=== PATIENT | male | born 2005 | race Caucasian/White ===

== ENCOUNTER 2025-04-18 08:46 | Emergency (ER) | payer OTHER, SELFPAY ==
[2025-04-18] VITALS (9 sets, daily range): BP systolic 112–141; BP diastolic 52–75; PULSE 53–67; RESP 11–34; TEMP 37; O2SAT 98–100; BMI 23.8
--- NOTE | 2025-04-18 09:00 | DI.RAD.S_ITS ---
PROCEDURE: XR CHEST 1V INDICATIONS: altered mental status TECHNIQUE: One view of the chest was acquired. COMPARISON: None. FINDINGS: Surgical changes and devices: None. Lungs and pleura: Lungs are clear. No pleural effusions or pneumothorax. Mediastinum: Mediastinal contours appear normal. Heart size is normal. Bones and chest wall: No suspicious bony lesions. Overlying soft tissues appear unremarkable. IMPRESSION: No acute cardiopulmonary abnormality is seen. Dictated by: Tom Sanchez M.D. on 04/18/2025 at 9:43 Approved by: Tom Sanchez M.D. on 04/18/2025 at 9:43
--- NOTE | 2025-04-18 09:12 | EKG_ITS ---
[address] [address] Test Date: 2025-04-18 Pat Name: Guerrero Joseph Department: Room: Gender: Male [employer] Coordinator: GLADYS : 2005 Requested By: Order Number: [id number] Reading MD: Geoff Kelley Measurements Intervals [place] Rate: 70 P: 63 DC: 164 QRS: 73 QRSD: 88 T: 35 QT: 380 QTc: 410 Interpretive Statements Normal sinus rhythm Electronically Signed On 04-18-2025 13:49:15 PDT by Geoff Kelley
[2025-04-18 09:20] LABS: Add Manual Diff / Slide Review NO; Hematocrit 41.8 % (41-53); Hemoglobin 14.1 g/dL (13.5-17.5); Lymphocytes Absolute Auto 1500 /uL (1100-4500); Mean Corpuscular HGB Conc 33.6 % (30-36); Mean Corpuscular Hemoglobin 30.7 PG (26-34); Mean Corpuscular Volume 91.2 fL (80-100); Platelet Count 257 X10^3/uL (150-400)
[2025-04-18 09:31] LABS: Lactate (Lactic Acid) 2.6 mmol/L (0.7-2.1)
[2025-04-18 09:32] LABS: Alanine Aminotransferase 21 IU/L (<50); Albumin 4.6 g/dL (3.5-5.0); Albumin Globulin Ratio 1.7 (1.0-2.8); Alkaline Phosphatase 48 U/L (38-126); Blood Urea Nitrogen 14 mg/dL (9-20); Calcium 9.3 mg/dL (8.4-10.2); Carbon Dioxide 24 mmol/L (22-32); Chloride 105 mmol/L (98-107); Creatine Kinase 68 U/L (55-170); Estimated Glomerular Filt Rate > 60 mL/min (>60); Ethanol (ETOH) < 10 mg/dL (<10); Globulin 2.7 g/dL (1.7-4.1); Glucose 84 mg/dL (70-99); HEMOLYSIS < 15 (0-50); Potassium 4.4 mmol/L (3.4-5.1); Sodium 138 mmol/L (137-145); Total Protein 7.3 g/dL (6.3-8.2)
--- NOTE | 2025-04-18 09:42 | PC.NURSE ---
Pt awake and alert. Oriented X 4. Reports headache pain.
[2025-04-18 09:43] LABS: Troponin I < 0.012 ng/mL (0.01-0.034)
--- NOTE | 2025-04-18 09:46 | ED.SEIZURE ---
HPI - Seizure General Chief Complaint: Blood/Body fluid exposure Stated Complaint: Seizure Time Seen by Provider: 04/18/25 09:46 Source: patient Mode of arrival: Ambulatory History of Present Illness HPI Narrative: Patient is a 19-year-old male no significant medical history presenting to day with a syncopal episode. It initially was thought that he was a seizure however there was no shaking. Girlfriend at bedside reports that she witnessed the whole thing. Patient says that he maybe felt some anxiety kind of clutched his chest and girlfriend helped lower him to the floor. He did not bite his tongue he had no urinary incontinence there was no convulsing of extremities. He reports waking up in the ambulance in confused. He is not actively vomiting. Denies any abdominal pain he is not having any chest pain. He said he has had some anxiety before but never this extreme. He does admit to smoking marijuana occasionally no other drug use no alcohol use. No seizure history. He has had no recent exposures or illnesses. Related Data Allergies Allergy/AdvReac Type Severity Reaction Status Date / Time No Known Allergies Allergy Mild Verified 04/18/25 08:53 Patient History Social History Smoking Status: Current some day smoker Smoking Status: Current some day smoker Exam Initial Vital Signs Initial Vital Signs: Vital Signs Temperature 98.6 F 04/18/25 08:52 Pulse Rate 67 04/18/25 08:52 Respiratory Rate 20 04/18/25 08:52 Blood Pressure 124/58 L 04/18/25 08:52 Pulse Oximetry 100 04/18/25 08:52 Oxygen Delivery Method Room Air 04/18/25 08:52 GENERAL: Alert actively vomiting 19-year-old male and in no acute distress. HEENT: Head atraumatic,EOMI, pupils reactive, face symmetric, no tongue injury CARDIOVASCULAR: Regular rate and rhythm without murmurs, rubs or gallops. RESPIRATORY: Breath sounds equal bilaterally, no wheezes rales or rhonchi. ABDOMEN: Soft, nontender. Normoactive bowel sounds all 4 quadrants. No guarding or rebound. EXTREMITIES: Normal range of motion, no clubbing or edema. Neurovascularly intact NEUROLOGICAL: Alert and oriented x4.Normal gait and speech. Cranial nerves II through XII grossly intact. Apparel Fashion Designer strength equal bilaterally moving all extremely SKIN: Warm, dry, no laceration, no petechiae, no rashes or lesions. Scores GCS [place] coma scale eye opening: Spontaneous [place]lene coma scale verbal response: Orientated [place] coma scale motor response: Obey commands Arlene coma scale total score: 15 Course Orders Ordered: ED Orders 04/18/25 09:00 XR chest 1V Stat EKG-12 Lead Stat 04/18/25 09:10 Complete Blood Count AUTO DIFF Stat Comprehensive Metabolic Panel Stat D Dimer Stat Ethanol (ETOH) Stat Lactate (Lactic Acid) Stat Procalcitonin Stat Prolactin Stat Troponin & CK Cardiac Panel Stat 04/18/25 10:29 CT head/brain wo con Stat 04/18/25 10:48 CT angio chest PE protocol Stat 04/18/25 11:45 UA Complete [Urinalysis and Microscopic] Stat Urine Drug Screen, Rapid Stat Discontinued Medications Sodium Chloride (Normal Saline 0.9%) 1,000 mls @ 1,000 mls/hr IV BOLUS ONE Stop: 04/18/25 11:28 Last Infusion: 04/18/25 11:35 Dose: Infused Documented By: Admin: 04/18/25 10:56 Dose: 1,000 mls/hr Documented By: Ketorolac Tromethamine (Ketorolac 30 Mg/Ml Vial) 15 mg IV NOW ONE Stop: 04/18/25 10:30 Last Admin: 04/18/25 10:47 Dose: 15 mg Documented By: Ondansetron HCl (Ondansetron 4 Mg/2 Ml Inj) 4 mg IV NOW ONE Stop: 04/18/25 09:50 Last Admin: 04/18/25 09:51 Dose: 4 mg Documented By: Vital Signs Vital signs: Vital Signs - 8 hr 04/18/25 08:52 04/18/25 09:14 04/18/25 09:30 Temperature 98.6 F Pulse Rate 67 67 59 L Respiratory Rate 20 16 Blood Pressure 124/58 L Pulse Oximetry 100 99 100 Oxygen Delivery Method Room Air 04/18/25 09:30 04/18/25 10:00 04/18/25 10:00 Temperature Pulse Rate 53 L Respiratory Rate 17 Blood Pressure 112/59 L 113/55 L Pulse Oximetry 98 Oxygen Delivery Method Room Air 04/18/25 10:30 04/18/25 10:30 04/18/25 10:46 Temperature Pulse Rate 58 L 53 L Respiratory Rate 17 15 Blood Pressure 141/63 H Pulse Oximetry 99 99 Oxygen Delivery Method 04/18/25 10:46 04/18/25 11:00 04/18/25 11:30 Temperature Pulse Rate 55 L 61 Respiratory Rate 25 H 34 H Blood Pressure 116/52 L Pulse Oximetry 100 100 Oxygen Delivery Method Room Air 04/18/25 11:46 04/18/25 11:46 Temperature Pulse Rate 61 Respiratory Rate 11 L Blood Pressure 132/75 Pulse Oximetry 100 Oxygen Delivery Method Room Air MDM - Seizure Lab Data 04/18/25 09:10 04/18/25 09:10 Labs: Lab Results 04/18/25 04/18/25 04/18/25 Range/Units 09:08 09:10 11:02 WBC 5.2 (4.5-11.0) X10^3/uL RBC 4.58 (4.5-5.9) X10^6/uL Hgb 14.1 (13.5-17.5) g/dL Hct 41.8 (41-53) % MCV 91.2 (80-100) fL MCH 30.7 (26-34) PG MCHC 33.6 (30-36) % RDW 13.8 (11.6-14.8) % Plt Count 257 (150-400) X10^3/uL Neut % (Auto) 61.0 (50-75) % Lymph % (Auto) 29.8 (25-40) % [place] % (Auto) 6.3 (3-14) % Eos % (Auto) 2.2 (2-4) % Baso % (Auto) 0.7 (0-2) % Neut # (Auto) 3200 (1987-7227) /uL Lymph # (Auto) 1500 (9761-5917) /uL [place] # (Auto) 300 (0-900) /uL Eos # (Auto) 100 (0-450) /uL Baso # (Auto) 0 (0-100) /uL D-Dimer 2564 H (<500) ng/ml Sodium 138 (137-145) mmol/L Potassium 4.4 (3.4-5.1) mmol/L Chloride 105 (98-107) mmol/L Carbon Dioxide 24 (22-32) mmol/L BUN 14 (9-20) mg/dL Creatinine 0.82 (0.66-1.25) mg/dL Estimated GFR > 60 (>60) mL/min BUN/Creatinine Ratio 17.1 (6-22) Glucose 84 (70-99) mg/dL POC Whole Bld Glucose 88 (70-99) mg/dL Lactate 2.6 H 0.8 (0.7-2.1) mmol/L Calcium 9.3 (8.4-10.2) mg/dL Total Bilirubin 0.6 (0.2-1.3) mg/dL AST 25 (17-59) IU/L ALT 21 (<50) IU/L Alkaline Phosphatase 48 (38-126) U/L Total Creatine Kinase 68 (55-170) U/L Troponin I < 0.012 (0.01-0.034) ng/mL Total Protein 7.3 (6.3-8.2) g/dL Albumin 4.6 (3.5-5.0) g/dL Globulin 2.7 (1.7-4.1) g/dL Albumin/Globulin Ratio 1.7 (1.0-2.8) Procalcitonin < 0.030 (<0.5) ng/mL Prolactin 39.7 H (3.7-17.9) ng/mL Urine Color Urine Appearance Urine pH (4.5-8.0) Ur Specific [place] (1.000-1.035) Urine Protein (Negative) Urine Glucose (UA) (Negative) g/dL Urine Ketones (NEGATIVE) Urine Occult Blood (Negative) Urine Nitrate (Negative) Urine Bilirubin (NEGATIVE) Urine Urobilinogen (0.2) E.U./dL Ur Leukocyte Esterase (NEGATIVE) Urine RBC (0-5/HPF) Urine WBC (0-5/HPF) Ur Squamous Epith Cells (0-5/HPF) Urine Bacteria (None) Ur Culture Indicated? Vol Urine Centrifuged U Opiates 300ng/mL cut (Negative) Ur Oxycodone Screen (Negative) Urine Methadone Screen (Negative) Ur Barbiturates Screen (Negative) U Tricyclic Antidepress (Negative) Ur Phencyclidine Scrn (Negative) Ur Amphetamines Screen (Negative) U Methamphetamines Scrn (Negative) Ur MDMA Scrn (Ecstasy) (Negative) U Benzodiazepines Scrn (Negative) Urine Cocaine Screen (Negative) U Marijuana (THC) Screen (Negative) Urine Specific [place] (Normal) Ethyl Alcohol < 10 (<10) mg/dL Ur Creatinine (Normal) 04/18/25 04/18/25 Range/Units 11:45 11:45 WBC (4.5-11.0) X10^3/uL RBC (4.5-5.9) X10^6/uL Hgb (13.5-17.5) g/dL Hct (41-53) % MCV (80-100) fL MCH (26-34) PG MCHC (30-36) % RDW (11.6-14.8) % Plt Count (150-400) X10^3/uL Neut % (Auto) (50-75) % Lymph % (Auto) (25-40) % [place] % (Auto) (3-14) % Eos % (Auto) (2-4) % Baso % (Auto) (0-2) % Neut # (Auto) (9679-3705) /uL Lymph # (Auto) (7894-4538) /uL [place] # (Auto) (0-900) /uL Eos # (Auto) (0-450) /uL Baso # (Auto) (0-100) /uL D-Dimer (<500) ng/ml Sodium (137-145) mmol/L Potassium (3.4-5.1) mmol/L Chloride (98-107) mmol/L Carbon Dioxide (22-32) mmol/L BUN (9-20) mg/dL Creatinine (0.66-1.25) mg/dL Estimated GFR (>60) mL/min BUN/Creatinine Ratio (6-22) Glucose (70-99) mg/dL POC Whole Bld Glucose (70-99) mg/dL Lactate (0.7-2.1) mmol/L Calcium (8.4-10.2) mg/dL Total Bilirubin (0.2-1.3) mg/dL AST (17-59) IU/L ALT (<50) IU/L Alkaline Phosphatase (38-126) U/L Total Creatine Kinase (55-170) U/L Troponin I (0.01-0.034) ng/mL Total Protein (6.3-8.2) g/dL Albumin (3.5-5.0) g/dL Globulin (1.7-4.1) g/dL Albumin/Globulin Ratio (1.0-2.8) Procalcitonin (<0.5) ng/mL Prolactin (3.7-17.9) ng/mL Urine Color Yellow Urine Appearance Clear Urine pH 7.0 Normal (4.5-8.0) Ur Specific [place] 1.020 (1.000-1.035) Urine Protein Negative (Negative) Urine Glucose (UA) Negative (Negative) g/dL Urine Ketones Trace H (NEGATIVE) Urine Occult Blood Negative (Negative) Urine Nitrate Negative (Negative) Urine Bilirubin Negative (NEGATIVE) Urine Urobilinogen 0.2 (0.2) E.U./dL Ur Leukocyte Esterase Negative (NEGATIVE) Urine RBC 0-1/hpf (0-5/HPF) Urine WBC 0-1/hpf (0-5/HPF) Ur Squamous Epith Cells 0-1 /hpf (0-5/HPF) Urine Bacteria Occasional (0-1) (None) Ur Culture Indicated? Cult not indicated Vol Urine Centrifuged 10ml (spun) U Opiates 300ng/mL cut Negative (Negative) Ur Oxycodone Screen Negative (Negative) Urine Methadone Screen Negative (Negative) Ur Barbiturates Screen Negative (Negative) U Tricyclic Antidepress Negative (Negative) Ur Phencyclidine Scrn Negative (Negative) Ur Amphetamines Screen Negative (Negative) U Methamphetamines Scrn Negative (Negative) Ur MDMA Scrn (Ecstasy) Negative (Negative) U Benzodiazepines Scrn Negative (Negative) Urine Cocaine Screen Negative (Negative) U Marijuana (THC) Screen Positive H (Negative) Urine Specific [place] Normal (Normal) Ethyl Alcohol (<10) mg/dL Ur Creatinine Normal (Normal) Point of Care Testing Glucose POC [address] scan - chest: Radiologist's Impression: PROCEDURE: CT ANGIO CHEST PE PROTOCOL INDICATIONS: syncope very high dimer TECHNIQUE: After the administration of intravenous contrast, 2 mm thick sections acquired from the pulmonary apices to the posterior costophrenic angles. 3-dimensional maximum intensity projection (MIP) coronal and sagittal reformats were then acquired through the thorax. For radiation dose reduction, the following was used: automated exposure control, adjustment of mA and/or kV according to patient size. COMPARISON: None. FINDINGS: Image quality: Diagnostic. Pulmonary arteries: Pulmonary arteries are normal in size, and demonstrate no intraluminal filling defects to suggest central pulmonary embolism. Lower Neck: No enlarged lymph nodes. Thyroid: No thyroid nodules which require sonographic follow up, per consensus guidelines. Axillae: No enlarged lymph nodes. Chest Wall: Unremarkable. Bones: No aggressive appearing bony lesions. Lungs and Pleura: No pneumothorax or pleural effusions. No consolidation or suspicious nodules. Heart: Heart size is normal. No pericardial effusion. Thoracic Vessels: No aortic aneurysm. Mediastinum and Joana: No enlarged lymph nodes. Esophagus: No wall thickening. No hiatal hernia. Upper Abdomen: Visualized upper abdomen solid organs and bowel loops appear normal. IMPRESSION: 1. No pulmonary embolus. No thoracic aortic aneurysm or dissection. 2. No acute cardiopulmonary pathology. Dictated by: Prem Menchaca M.D. on 04/18/2025 at 11:53 CT scan - head: Radiologist's Impression: PROCEDURE: CT HEAD/BRAIN WO CON INDICATIONS: syncope seizure vomiting TECHNIQUE: Noncontrast 4.5 mm thick angled axial sections acquired from the foramen magnum to the vertex, with coronal and sagittal reformats. For radiation dose reduction, the following was used: automated exposure control, adjustment of mA and/or kV according to patient size. COMPARISON: None. FINDINGS: Image quality: Diagnostic. CSF spaces: Basal cisterns are patent. No extra-axial fluid collections. Ventricles are normal in size and shape. Brain: No midline shift. No intracranial mass effect or hemorrhage. Hollis-white matter interface is normal. Skull and face: Calvarium and visualized facial bones are intact, without suspicious lesions. Sinuses: Visualized sinuses and mastoids are clear. IMPRESSION: No acute intracranial pathology. Dictated by: Prem Menchaca M.D. on 04/18/2025 at 10:52 Chest x-ray: Radiologist's Impression: PROCEDURE: XR CHEST 1V INDICATIONS: altered mental status TECHNIQUE: One view of the chest was acquired. COMPARISON: None. FINDINGS: Surgical changes and devices: None. Lungs and pleura: Lungs are clear. No pleural effusions or pneumothorax. Mediastinum: Mediastinal contours appear normal. Heart size is normal. Bones and chest wall: No suspicious bony lesions. Overlying soft tissues appear unremarkable. IMPRESSION: No acute cardiopulmonary abnormality is seen. Dictated by: Tom Sanchez M.D. on 04/18/2025 at 9:43 ECG Data Attestation: I personally reviewed and interpreted this ECG as follows: Prior ECG tracings: not available for review Interpretation: Normal sinus rhythm rate 70 PA interval 164 QRS [address] changes MDM Narrative Medical decision making narrative: MDM CC: Syncope Complicating co-morbidities: Healthy 19-year-old Data collected from: EMS girlfriend, patient Medical records reviewed: None prior Differential considered: Seizure I think unlikely, cardiac arrhythmia, syncope Exam documented above, pertinent findings include: A&O x3 neurovascularly intact moving all extremities abdomen soft nontender breath sounds are clear Lab Test results independently reviewed as above. Pertinent findings: D-dimer 2564 CBC no leukocytosis no anemia CMP electrolytes within normal limits no PAT Lactate 2.6 with repeat 0.8 Troponin negative Prolactin is 39.7 Independently reviewed EKG as above Sinus rhythm no arrhythmia no AV isabela block Imaging studies independently reviewed: Head CT no intracranial abnormality Chest x-ray no abnormality CT chest no pulmonary embolus Consultations: None Treatments: IV fluids Toradol Re-evaluations: Patient awake alert oriented no complaint Discussion: Patient 19-year-old male presents today with syncopal episode. Initially EMS thought it might be a seizure however he there is no reports of convulsions he has no tongue injury no urinary incontinence no prior history of seizure. He did clutch his chest and was then lowered to the ground. EKGs does not show any kind of arrhythmia. D-dimer was noted to be quite elevated so CT angio was done which ruled out pulmonary embolism. He was never tachycardic or hypoxic. He does not mild elevation of a prolactin which could indicate seizure however clinical history does not necessarily suggest it. I suspect more of a syncopal episode but unclear why. I do recommend he have outpatient follow up with a Holter monitor. He is neurovascularly intact. Tox screen is negative. Discharge Plan Departure Patient Disposition: Home Clinical Impression: Syncope Instructions: DI for Syncope in Adults (Fainting) Activity Restrictions/Additional Instructions: *You have been diagnosed with syncope *What to do: At this time workup in the emergency department is overall reassuring. I do recommend that you get a Holter monitor to monitor your heart rate and rhythm. Please discuss this with your primary care provider eat and drink regularly *Continue to take medications as directed *Follow up with your primary care provider in 2-3 days or call [phone] *Return to ER if you should have recurrent episode of passing out shaking all over or any new, worsening or concerning symptoms Stand Alone Forms: Patient Portal/API, Work Release Note
[2025-04-18 09:48] LABS: Procalcitonin < 0.030 ng/mL (<0.5)
[2025-04-18] MEDS: ONDANSETRON 4 MG/2 ML INJ IV (09:51)
--- NOTE | 2025-04-18 09:54 | PC.NURSE ---
Pt nauseated, Verbal order received from Dr Mackenzie for IV 4 mg Zofran.
--- NOTE | 2025-04-18 10:29 | DI.CT.S_ITS ---
PROCEDURE: CT HEAD/BRAIN WO CON INDICATIONS: syncope seizure vomiting TECHNIQUE: Noncontrast 4.5 mm thick angled axial sections acquired from the foramen magnum to the vertex, with coronal and sagittal reformats. For radiation dose reduction, the following was used: automated exposure control, adjustment of mA and/or kV according to patient size. COMPARISON: None. FINDINGS: Image quality: Diagnostic. CSF spaces: Basal cisterns are patent. No extra-axial fluid collections. Ventricles are normal in size and shape. Brain: No midline shift. No intracranial mass effect or hemorrhage. Hollis- white matter interface is normal. Skull and face: Calvarium and visualized facial bones are intact, without suspicious lesions. Sinuses: Visualized sinuses and mastoids are clear. IMPRESSION: No acute intracranial pathology. Dictated by: Prem Menchaca M.D. on 04/18/2025 at 10:52 Approved by: Prem Menchaca M.D. on 04/18/2025 at 10:52
[2025-04-18] MEDS: KETOROLAC 30 MG/ML VIAL 15 MG IV (10:47)
--- NOTE | 2025-04-18 10:48 | DI.CT.S_ITS ---
PROCEDURE: CT ANGIO CHEST PE PROTOCOL INDICATIONS: syncope very high dimer TECHNIQUE: After the administration of intravenous contrast, 2 mm thick sections acquired from the pulmonary apices to the posterior costophrenic angles. 3-dimensional maximum intensity projection (MIP) coronal and sagittal reformats were then acquired through the thorax. For radiation dose reduction, the following was used: automated exposure control, adjustment of mA and/or kV according to patient size. COMPARISON: None. FINDINGS: Image quality: Diagnostic. Pulmonary arteries: Pulmonary arteries are normal in size, and demonstrate no intraluminal filling defects to suggest central pulmonary embolism. Lower Neck: No enlarged lymph nodes. Thyroid: No thyroid nodules which require sonographic follow up, per consensus guidelines. Axillae: No enlarged lymph nodes. Chest Wall: Unremarkable. Bones: No aggressive appearing bony lesions. Lungs and Pleura: No pneumothorax or pleural effusions. No consolidation or suspicious nodules. Heart: Heart size is normal. No pericardial effusion. Thoracic Vessels: No aortic aneurysm. Mediastinum and Joana: No enlarged lymph nodes. Esophagus: No wall thickening. No hiatal hernia. Upper Abdomen: Visualized upper abdomen solid organs and bowel loops appear normal. IMPRESSION: 1. No pulmonary embolus. No thoracic aortic aneurysm or dissection. 2. No acute cardiopulmonary pathology. Dictated by: Prem Menchaca M.D. on 04/18/2025 at 11:53 Approved by: Prem Menchaca M.D. on 04/18/2025 at 11:57
[2025-04-18 10:51] LABS: Reflexed Lactate in 2 Hours Y
[2025-04-18] MEDS: SODIUM CHLORIDE 0.9% 1,000 ML 1000 ML IV (10:56)
[2025-04-18 11:19] LABS: Lactate 2HR (Lactic Acid Rflx) 0.8 mmol/L (0.7-2.1)
[2025-04-18 11:57] LABS: Appearance Urine UA CLEAR; Bilirubin Urine UA NEGATIVE (NEGATIVE); Color Urine UA YELLOW; Glucose Urine UA NEGATIVE (Negative); Ketones Urine UA TRACE (NEGATIVE); Leukocyte Esterase Urine UA NEGATIVE (NEGATIVE); Nitrite Urine UA NEGATIVE (Negative); Occult Blood Urine UA NEGATIVE (Negative); Protein Urine UA NEGATIVE (Negative); Specific Gravity Urine UA 1.020 (1.000-1.035); Urobilinogen Urine UA 0.2 E.U./dL (0.2); pH Urine UA 7.0 (4.5-8.0)
[2025-04-18 12:00] LABS: UR Morphine/Opiate cutoff 300 Negative (Negative); Ur Specific Gravity Normal (Normal); Urine MDMA Negative (Negative); Urine Methamphetamines Negative (Negative); Urine Tetrahydrocannabinol Positive (Negative); Urine Tricyclic Antidepressant Negative (Negative)
[2025-04-18 12:04] LABS: Culture Indicated Urine Cult Not Indicated
== END 2025-04-18 12:45 | disposition home or self-care (01) ==
PROVIDERS: Emergency Provider Emergency Medicine
DX: R55 Syncope and collapse (principal); R41.82 Altered mental status, unspecified; F17.210 Nicotine dependence, cigarettes, uncomplicated
CPT/HCPCS: 36415; 70450; 71045; 71275; 80053; 80305; 80320; 81001; 82550; 82962; 83605; 84145; 84146; 84484; 85025; 85379; 93005; 96361; 96374; 96375; 99284; J1885; J2405; Q9967

== ENCOUNTER 2025-07-23 12:00 | Emergency (ER) | payer OTHER, SELFPAY ==
[2025-07-23] VITALS (11 sets, daily range): BP systolic 107–133; BP diastolic 53–62; PULSE 52–67; RESP 12–21; TEMP 36.4; O2SAT 94–100; BMI 24.7
--- NOTE | 2025-07-23 12:24 | ED_ITS ---
HPI - Seizure General Chief Complaint: Seizure Stated Complaint: Seizure Time Seen by Provider: 07/23/25 12:01 History of Present Illness HPI Narrative: Patient 20-year-old male presenting today with possible seizure. He reports that he was getting into the shower when he did not quite feel right he fell hit his head he does have a laceration on the right side. He lost consciousness he reports that he did not wake up until he was in the ambulance. Girlfriend's site there was some shaking involved. He did not bite his tongue he did not have any urinary incontinence. It is similar episode about a couple months ago thought to be a syncopal episode at that time but girlfriend reports that he was shaking. This is now his 2nd occurrence. He denies drinking any kind of alcohol no drug use Related Data Previous Rx's ?Medication ?Instructions ?Recorded levetiracetam 500 mg tablet 500 mg PO BID #90 tabs (Keppra) Allergies Allergy/AdvReac Type Severity Reaction Status Date / Time No Known Allergies Allergy Mild Verified 07/23/25 12:27 Patient History Medical History [facility] Vasovagal syncope Exam Initial Vital Signs Initial Vital Signs: Vital Signs Blood Pressure 133/58 L 07/23/25 12:03 GENERAL: Alert well-appearing 20-year-old HEENT: Head 4 cm laceration right temporal area NECK: C-collar in place CARDIOVASCULAR: Regular rate and rhythm without murmurs, rubs or gallops. RESPIRATORY: Breath sounds equal bilaterally, no wheezes rales or rhonchi. ABDOMEN: Soft, nontender. Normoactive bowel sounds all 4 quadrants. No guarding or rebound. EXTREMITIES: Normal range of motion, no clubbing or edema. Neurovascularly intact NEUROLOGICAL: Alert and oriented x4.Normal gait and speech. Cranial nerves II through XII grossly intact. SKIN: Warm, dry, no laceration, no petechiae, no rashes or lesions. Course Orders Ordered: ED Orders 07/23/25 12:22 CT angio head and neck Stat EKG-12 Lead Stat 07/23/25 12:24 CBC Auto Diff [Complete Blood Count AUTO DIFF] Stat CMP [Comprehensive Metabolic Panel] Stat ETOH [Ethanol (ETOH)] Stat Lactate (Lactic Acid) Stat Prolactin Stat 07/23/25 14:15 Urine Drug Screen, Rapid Stat Discontinued Medications Sodium Chloride (Normal Saline 0.9%) 1,000 mls @ 1,000 mls/hr IV BOLUS ONE Stop: 07/23/25 13:04 Last Infusion: 07/23/25 14:16 Dose: Infused Documented By: Admin: 07/23/25 12:49 Dose: 1,000 mls/hr Documented By: ALEX Ketorolac Tromethamine (Ketorolac 30 Mg/Ml Vial) 15 mg IV NOW ONE Stop: 07/23/25 14:10 Last Admin: 07/23/25 14:45 Dose: 15 mg Documented By: ALEX Levetiracetam (Levetiracetam 250 Mg Tablet) 500 mg PO NOW ONE Stop: 07/23/25 13:57 Last Admin: 07/23/25 14:46 Dose: 500 mg Documented By: ALEX Vital Signs Vital signs: Vital Signs - 8 hr 07/23/25 12:03 07/23/25 12:04 07/23/25 12:27 Temperature 97.6 F Pulse Rate 67 66 Respiratory Rate 14 14 Blood Pressure 133/58 L 133/58 L Pulse Oximetry 98 98 Oxygen Delivery Method Room Air Room Air 07/23/25 12:41 07/23/25 12:41 07/23/25 13:00 Temperature Pulse Rate 64 63 Respiratory Rate 12 17 Blood Pressure 108/53 L Pulse Oximetry 99 100 Oxygen Delivery Method 07/23/25 13:01 07/23/25 13:01 07/23/25 13:30 Temperature Pulse Rate 64 55 L Respiratory Rate 20 21 Blood Pressure 107/59 L Pulse Oximetry 100 99 Oxygen Delivery Method 07/23/25 13:30 07/23/25 14:00 07/23/25 14:00 Temperature Pulse Rate 62 Respiratory Rate 15 Blood Pressure 114/55 L 117/56 L Pulse Oximetry 94 Oxygen Delivery Method 07/23/25 14:30 07/23/25 14:30 07/23/25 15:00 Temperature Pulse Rate 52 L 55 L Respiratory Rate 17 21 Blood Pressure 120/60 Pulse Oximetry 100 99 Oxygen Delivery Method 07/23/25 15:00 07/23/25 15:30 07/23/25 15:30 Temperature Pulse Rate 57 L Respiratory Rate 17 Blood Pressure 115/62 119/57 L Pulse Oximetry 100 Oxygen Delivery Method MDM - Seizure Lab Data 07/23/25 12:24 07/23/25 12:24 Labs: Lab Results 07/23/25 07/23/25 07/23/25 Range/Units 12:24 14:15 14:50 WBC 6.0 (4.5-11.0) X10^3/uL RBC 4.89 (4.5-5.9) X10^6/uL Hgb 14.7 (13.5-17.5) g/dL Hct 43.8 (41-53) % MCV 89.7 (80-100) fL MCH 30.1 (26-34) PG MCHC 33.5 (30-36) % RDW 13.4 (11.6-14.8) % Plt Count 284 (150-400) X10^3/uL Neut % (Auto) 60.2 (50-75) % Lymph % (Auto) 29.9 (25-40) % Emmons % (Auto) 6.5 (3-14) % Eos % (Auto) 2.4 (2-4) % Baso % (Auto) 1.0 (0-2) % Neut # (Auto) 3600 (4821-8807) /uL Lymph # (Auto) 1800 (2783-8055) /uL Emmons # (Auto) 400 (0-900) /uL Eos # (Auto) 100 (0-450) /uL Baso # (Auto) 100 (0-100) /uL Sodium 139 (137-145) mmol/L Potassium 4.3 (3.4-5.1) mmol/L Chloride 107 (98-107) mmol/L Carbon Dioxide 20 L (22-32) mmol/L BUN 15 (9-20) mg/dL Creatinine 0.76 (0.66-1.25) mg/dL Estimated GFR > 60 (>60) mL/min BUN/Creatinine Ratio 19.7 (6-22) Glucose 88 (70-99) mg/dL Lactate 3.8 H 0.8 (0.7-2.1) mmol/L Calcium 9.2 (8.4-10.2) mg/dL Total Bilirubin 0.3 (0.2-1.3) mg/dL AST 25 (17-59) IU/L ALT 26 (<50) IU/L Alkaline Phosphatase 55 (38-126) U/L Total Protein 7.4 (6.3-8.2) g/dL Albumin 4.6 (3.5-5.0) g/dL Globulin 2.8 (1.7-4.1) g/dL Albumin/Globulin Ratio 1.6 (1.0-2.8) Prolactin 32.2 H (3.7-17.9) ng/mL U Opiates 300ng/mL cut Negative (Negative) Ur Oxycodone Screen Negative (Negative) Urine Methadone Screen Negative (Negative) Ur Barbiturates Screen Negative (Negative) U Tricyclic Antidepress Negative (Negative) Ur Phencyclidine Scrn Negative (Negative) Ur Amphetamines Screen Negative (Negative) U Methamphetamines Scrn Negative (Negative) Ur MDMA Scrn (Ecstasy) Negative (Negative) U Benzodiazepines Scrn Negative (Negative) Urine Cocaine Screen Negative (Negative) U Marijuana (THC) Screen Positive H (Negative) Urine pH Normal (Normal) Urine Specific [place] Normal (Normal) Ethyl Alcohol < 10 (<10) mg/dL Ur Creatinine Normal (Normal) Point of Care Testing Glucose POC 115 Imaging Data CTA - brain/neck: Radiologist's Impression: PROCEDURE: CT ANGIO HEAD AND NECK INDICATIONS: recurrent syncope questionable seizure TECHNIQUE: After the administration of intravenous contrast, 1 mm thick sections acquired from the aortic arch through the [place]. 3-dimensional xcoxzcj-ilvwufdsp-pudkvuskhf (MIP) and/or volume rendering reformats were acquired of the central intracranial vasculature and neck separately. For radiation dose reduction, the following was used: automated exposure control, adjustment of mA and/or kV according to patient size. COMPARISON: None. FINDINGS: Image quality: Diagnostic. Cerebral CT Angiogram: Internal carotid arteries: No acute findings. Intracranial ICA are patent with no significant stenosis. No occlusion. No aneurysm. Anterior cerebral arteries: Unremarkable. No significant stenosis. No occlusion. No aneurysm. Middle cerebral arteries: Unremarkable. No significant stenosis. No occlusion. No aneurysm. Posterior cerebral arteries: Unremarkable. No significant stenosis. No occlusion. No aneurysm. Basilar artery: Unremarkable. No significant stenosis. No occlusion. No aneurysm. Vertebral arteries: Unremarkable as visualized. Dural venous sinuses: Unremarkable given phase of enhancement. Other: Arterial phase appearance of the brain parenchyma is unremarkable. Right scalp laceration status post marie. Neck CT Angiogram: Internal carotid arteries: Unremarkable. No significant stenosis. No dissection or occlusion. Common carotid arteries: Unremarkable. No significant stenosis. No dissection or occlusion. External carotid arteries: Unremarkable. No occlusion. Vertebral arteries: Unremarkable. No significant stenosis. No dissection or occlusion. Aortic Arch and Mediastinum: Partially visualized aortic arch unremarkable without evidence of aneurysm. Origins of the great vessels unremarkable. Other: Right upper lobe ground-glass opacities. IMPRESSION: No significant intracranial arterial abnormality is seen. No significant abnormality is seen within the arteries of the neck. Right upper lobe ground-glass opacities concerning for infection. Consider follow-up imaging after treatment to ensure resolution. Any quantitative measurements of stenosis were performed using NASCET criteria. Approved by: Oziel Reyes M.D. on 07/23/2025 at 12:58 MDM Narrative Medical decision making narrative: Patient is a 20-year-old male presenting today for a 2nd syncopal episode there is concern for possible seizure. Last time it sounds like he had a vasovagal reaction but now had a loss of consciousness. No evidence of tongue biting or urinary incontinence. But he did hit his head requiring marie Blood work has been reviewed overall reassuring CBC is within normal CMP within normal limits Lactate is elevated at 3.8 with a repeat of 0.8 this is consistent with possible seizure Prolactin also elevated at 32 point Toxicology positive for marijuana, alcohol level also negative CT head and neck angio does not show any fracture intracranial hemorrhage Patient received 1st dose of Keppra [address] bennett updated patient's symptoms test results agrees with starting Keppra needs further evaluation with an EEG and an MRI and a neurologist I have updated patient and family of new diagnosis of seizure. He understands that he can not drive he does not drive at baseline. I understand he needs further evaluation and will be started on Keppra Discharge Plan Departure Patient Disposition: Home Clinical Impression: New onset seizure, Laceration of head Instructions: DI for Seizure Disorder -- Adult, DI for Laceration Repair -- [place] Activity Restrictions/Additional Instructions: DO NOT DRIVE UNTIL CLEARED BY NEUROLOGY *You have been diagnosed with new seizure, head laceration *What to do: At this time mood is concerning that you have seizure disorder. It is important that you have evaluation and further testing with neurology You will need to call and set up appointment this can take some time Have marie removed in about 5-7 days okay to clean bathe and wash areas *Continue to take medications as directed Keppra 500 mg twice a day *Follow up with your primary care provider in 2-3 days or call [phone] *Return to ER if you should have recurrent seizure or any new, worsening or concerning symptoms Prescriptions: New levetiracetam [Keppra] 500 mg tablet 500 mg PO BID Qty: 90 0RF Referrals: Blayne Munroe DO [Primary Care Provider, Family Practice] Edward Wilson MD [Non-Staff, Neurology] Stand Alone Forms: Patient Portal/API
[2025-07-23 12:34] LABS: Add Manual Diff / Slide Review NO; Hematocrit 43.8 % (41-53); Hemoglobin 14.7 g/dL (13.5-17.5); Lymphocytes Absolute Auto 1800 /uL (1100-4500); Mean Corpuscular HGB Conc 33.5 % (30-36); Mean Corpuscular Hemoglobin 30.1 PG (26-34); Mean Corpuscular Volume 89.7 fL (80-100); Platelet Count 284 X10^3/uL (150-400)
[2025-07-23 12:49] LABS: Lactate (Lactic Acid) 3.8 mmol/L (0.7-2.1)
[2025-07-23] MEDS: SODIUM CHLORIDE 0.9% 1,000 ML 1000 ML IV (12:49)
[2025-07-23 12:50] LABS: Alanine Aminotransferase 26 IU/L (<50); Albumin 4.6 g/dL (3.5-5.0); Albumin Globulin Ratio 1.6 (1.0-2.8); Alkaline Phosphatase 55 U/L (38-126); Blood Urea Nitrogen 15 mg/dL (9-20); Calcium 9.2 mg/dL (8.4-10.2); Carbon Dioxide 20 mmol/L (22-32); Chloride 107 mmol/L (98-107); Estimated Glomerular Filt Rate > 60 mL/min (>60); Ethanol (ETOH) < 10 mg/dL (<10); Globulin 2.8 g/dL (1.7-4.1); Glucose 88 mg/dL (70-99); HEMOLYSIS < 15 (0-50); Potassium 4.3 mmol/L (3.4-5.1); Sodium 139 mmol/L (137-145); Total Protein 7.4 g/dL (6.3-8.2)
[2025-07-23 14:05] LABS: Reflexed Lactate in 2 Hours Y
[2025-07-23] MEDS: KETOROLAC 30 MG/ML VIAL 15 MG IV (14:45)
[2025-07-23 15:16] LABS: Lactate 2HR (Lactic Acid Rflx) 0.8 mmol/L (0.7-2.1)
[2025-07-23 16:04] LABS: UR Morphine/Opiate cutoff 300 Negative (Negative); Ur Specific Gravity Normal (Normal); Urine MDMA Negative (Negative); Urine Methamphetamines Negative (Negative); Urine Tetrahydrocannabinol Positive (Negative); Urine Tricyclic Antidepressant Negative (Negative)
== END 2025-07-23 15:47 | disposition home or self-care (01) ==
PROVIDERS: Emergency Provider Emergency Medicine; PCP Family Medicine
DX: S01.91XA Laceration without foreign body of unspecified part of head, initial encounter (principal); W18.00XA Striking against unspecified object with subsequent fall, initial encounter
CPT/HCPCS: 12002; 70496; 70498; 80053; 80305; 80320; 83605; 84146; 85025; 96361; 96374; 99284; J1885; J7030; Q9967